=== PATIENT | male | born 2000 | race Caucasian/White ===

== ENCOUNTER 2024-09-28 17:45 | Emergency (ER) | payer OTHER ==
[~2024-09-28] VITALS: Ht 185.4 cm; Wt 85.0 kg
[2024-09-28] MEDS ORDERED: TRAZ-252 (17:57)
[2024-09-28] MEDS ORDERED: ONDA-282 (17:57)
[2024-09-28] MEDS ORDERED: ZOLO100T (17:57)
[2024-09-28 19:20] LABS: VENOUS HCO3 25.1 MMOL/L (23.0-27.0); VENOUS O2 SATURATION 94.8 % (60.0-80.0); VENOUS PARTIAL PRESSURE CO2 46.6 mmHg (38.0-50.0); VENOUS PARTIAL PRESSURE O2 75.9 mmHg (30.0-50.0); VENOUS PH 7.349 UNITS (7.330-7.430); VENOUS STANDARD HCO3 23.6 MMOL/L; VENOUS TOTAL CO2 26.5 MMOL/L (24.0-28.0)
[2024-09-28 19:34] LABS: BASO % 0.2 % (0.0-1.0); EOS % 0.7 % (0.0-3.0); HEMATOCRIT 41.8 % (42.0-52.0); HEMOGLOBIN 15.2 g/dl (13.5-17.5); LYMPH # 0.8 10^3/uL (1.5-5.0); LYMPH % 17.7 % (24.0-44.0); MEAN CORPUSCULAR HEMOGLOBIN 32.6 pg (27.0-33.0); MEAN CORPUSCULAR HGB CONC 36.4 g/dl (32.0-36.5); MEAN CORPUSCULAR VOLUME 89.7 fl (80.0-96.0); MONO # 0.5 10^3/uL (0.0-0.8); MONO % 10.4 % (2.0-8.0); NEUTROPHILS # 3.1 10^3/uL (1.5-8.5); NEUTROPHILS % 70.8 % (36.0-66.0); PLATELET COUNT, AUTOMATED 156 10^3/uL (150-450); RED BLOOD COUNT 4.66 10^6/uL (4.30-6.10); WHITE BLOOD COUNT 4.4 10^3/uL (4.0-10.0)
[2024-09-28 19:36] LABS: THYROID STIMULATING HORMONE 1.065 uIU/ML (0.55-4.78)
[2024-09-28 19:40] LABS: PROCALCITONIN 0.39 ng/ml
[2024-09-28 19:41] LABS: ALKALINE PHOSPHATASE 48 U/L (40-129); ALT/SGPT 33 U/L (7.0-40); AST/SGOT 73 U/L (<34); BILIRUBIN,DIRECT 0.2 MG/DL (<0.4); BILIRUBIN,TOTAL 0.7 MG/DL (0.3-1.2); BLOOD UREA NITROGEN 14 MG/DL (9-23); CALCIUM LEVEL 8.5 MG/DL (8.5-10.1); CARBON DIOXIDE LEVEL 22 MMOL/L (20-31); CHLORIDE LEVEL 104 MMOL/L (98-107); CK-MB VALUE MASS 2.6 NG/ML (<3.6); CPK CREATINE PHOSPHOKINASE 193 U/L (46-171); GLOMERULAR FILTRATION RATE > 90.0 (>60); GLUCOSE, FASTING 92 MG/DL (60-100); MAGNESIUM LEVEL 1.9 MG/DL (1.8-2.4); MB/CK RELATIVE INDEX 1.34 (< OR =4); POTASSIUM SERUM 4.5 MMOL/L (3.5-5.1); SODIUM LEVEL 137 MMOL/L (136-145); TOTAL PROTEIN 7.1 G/DL (5.7-8.2)
[2024-09-28] MEDS: KETOROLAC 30 MG/ML 1ML VIAL IV ONE (20:23)
[2024-09-28] MEDS: ONDANSETRON 4MG 2ML VIAL IV ONE (20:23)
[2024-09-28] MEDS: NS (Normal Saline) 0.9% 1,000 ML IV ONE (20:24)
[2024-09-28 20:55] LABS: CK-MB VALUE MASS 2.4 NG/ML (<3.6)
[2024-09-28 20:56] LABS: MB/CK RELATIVE INDEX 1.92 (< OR =4)
[2024-09-28 22:43] LABS: CK-MB VALUE MASS 2.1 NG/ML (<3.6); MB/CK RELATIVE INDEX 1.84 (< OR =4)
[2024-09-29] MEDS ORDERED: ONDA-282 PO (00:34)
[2024-09-29] MEDS ORDERED: LOPE2TAB12 PO (00:34)
[2024-09-29 00:45] VITALS: BP 118/76; TEMP 97.6; O2SAT 96
== END 2024-09-29 01:02 | disposition home or self-care (01) ==
LOC: M ED 17:45
DX: A08.4 Viral intestinal infection, unspecified (principal); I45.10 Unspecified right bundle-branch block; Z88.0 Allergy status to penicillin; Z79.899 Other long term (current) drug therapy
CPT/HCPCS: 71045; 80047; 80048; 80076; 82550; 82553; 82803; 83735; 84145; 84443; 84484; 85025; 87486; 87507; 87581; 87633; 87798; 93005; 93041; 94760; 96361; 96374; 99285; J1885; J2405